=== PATIENT | male | born 1965 | race Caucasian/White ===

== ENCOUNTER 2017-04-19 18:12 | Inpatient (IN) | payer OTHER ==
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
--- NOTE | ~2017-04-19 | PUL ---
[facility] [address] [place]. [address] NAME: MITCH GREEN : 65 STATUS : DIS IN PAT#: [id number] AGE: 51 ADM/REG DATE : 04/19/17 MR#: [id number] REPORT SERV DATE: 04/27/17 DICTATED BY: ASHLEY MORELOS IV DATE: 04/27/17 REPORT STATUS : Draft TRANSCRIBED BY: VICENTE DATE: 04/27/17 PULMONARY FUNCTION TEST OVERNIGHT OXIMETRY The study was initiated on room air; however, 2 L of supplemental oxygen was added after 5 minutes of significant nocturnal desaturation. The remainder of the study was performed on the 2 L. 5 hours and 49 minutes of data are available for review. The mean oxygen saturation was 94.7%. Lowest scored saturation was 72%. The patient spent 36 minutes with oxygen saturations less than 88%. There were periods of oxygen saturation variation throughout the study that varied by significantly more than 4%. It was during these episodes that the patient had significant nocturnal desaturations. IMPRESSION: Significant nocturnal hypoxemia despite 2 L of supplemental oxygen. There is a pattern consistent with obstructive sleep apnea that would be severe based on a desaturation index of 35 per hour. I would continue 2 L of supplemental oxygen for now and obtain a formal polysomnography. CHAPARRITA/VICENTE Ashley Morelos IV, M.D. / [id number] CC: MD Raymon Casas M.D.
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
--- NOTE | ~2017-04-19 | DS ---
Discharge Summary [facility] [address] [place]. [address] NAME: MITCH GREEN : 65 STATUS : DIS IN PAT#: [id number] AGE: 51 ADM/REG DATE : 04/19/17 MR#: [id number] REPORT SERV DATE: 05/01/17 DICTATED BY: CHRISTI BELL DATE: 04/30/17 REPORT STATUS : Draft TRANSCRIBED BY: MODL DATE: 04/30/17 ADMISSION DATE: 04/19/2017 DISCHARGE DATE: 04/27/2017 DISCHARGE DIAGNOSES: 1. New acute heart failure exacerbation present on arrival with ejection fraction of 16% to 20%. 2. Cardiovascular disease, three-vessel on cath. 3. Left ventricular thrombus. 4. Muscular dystrophy. 5. Obesity. 6. Hypertension. 7. Chronic venous stasis changes. CONSULTATIONS: Dr. Cruz and Dr. Levi. PROCEDURES PERFORMED: Nocturnal O2 required at discharge. Vein mapping of lower extremities. Carotid blood flow, normal for carotids. Cardiac MRI, evidence for LV ventricular apical and anteroseptal infarction. There are some small transmural areas which is chronic. There is preservation through most of the infarct area of 50% or more and of the myocardial thickness suggesting viable tissue. There is an intraventricular apical thrombus, EF of 50%, significant tricuspid regurg. Chest x-ray on discharge, stable cardiomegaly. Echocardiogram, apical echodensity measuring up to 1.2 cm on long axis, EF of 20%. Cardiac cath showed severe 3-vessel disease, occluded LAD [id number] and limited to left collaterals. Left heart catheterization, no left ventriculogram performed due to presence of left ventricular thrombus by echo. DISCHARGE DISPOSITION: Discharged with home health heart failure protocol nocturnal O2. Follow up with Dr. Kohli in 2 to 4 weeks, additionally follow up with Dr. Levi in 4 weeks at which time, need to be reassessed for followup with Dr. Cruz in approximately 6 weeks for possible bypass grafting after optimization of pulmonary function, cardiac function with Home Health will be evaluated. DISCHARGE MEDICATIONS: 1. Oxygen 2 L by nasal cannula during sleep. 2. Aspirin 81 mg one tablet p.o. daily. 3. Lipitor 40 mg one tablet p.o. daily. 4. Coreg 6.25 mg one tablet p.o. b.i.d. 5. Demadex 20 mg one tablet p.o. daily. 6. Toujeo 40 units subcutaneous at bedtime. 7. Xarelto 15 mg one tablet p.o. b.i.d. 8. Losartan 50 mg one tablet p.o. daily. 9. Glucophage 1000 mg one tablet p.o. b.i.d. 10.Spironolactone 50 mg one tablet p.o. daily. 11.Oxycodone 5/325 mg one tablet p.o. q.8 hours as needed for breakthrough pain. Discharge Summary [place] [place]. [address] NAME: MITCH GREEN : 65 STATUS : DIS IN PAT#: [id number] AGE: 51 ADM/REG DATE : 04/19/17 MR#: [id number] REPORT SERV DATE: 05/01/17 DICTATED BY: CHRISTI BELL DATE: 04/30/17 REPORT STATUS : Draft TRANSCRIBED BY: VICENTE DATE: 04/30/17 HOSPITAL COURSE: Please see H and P for complete details of HPI. Briefly, Mr. Green is a 51-year-old male insulin-dependent diabetes with history DVT and PE, no longer on anticoagulation, previously used Xarelto, also has muscular dystrophy, who presents after having continued swelling. The patient was having workup for swelling as an outpatient with a head CT performed and possible LV thrombus was noted. The patient was admitted, although he did not feel he is different from his baseline. The patient had coronary workup continued which noted multivessel disease. Vein mapping, carotid workup was also performed with echocardiogram. The patient was noted to have thrombus and before coronary artery bypass grafting could be performed, the patient would need four to six weeks of anticoagulation. This was chosen in the form of Xarelto at which time, the patient will follow with Dr. Levi for reassessment and possible scheduling of bypass grafting at that time. The patient was also advised to have PT/OT Services like in the form of [facility] or the home health or heart failure order set as the patient is with new heart failure in order to optimize lung function prior to potential surgical intervention. The patient was counseled about findings throughout course and discharge recommendations and medications. Greater than 30 minutes was spent with discharge planning, med reconciliation, and education. DICTATED BY: MD ROMINA Casas/VICENTE Christi Bell MD / [id number] CC: MD Raymon Casas M.D.
--- NOTE | ~2017-04-19 | PUL ---
[facility] [address] [place]. [address] NAME: MITCH GREEN : 65 STATUS : ADM IN [facility]#: [id number] AGE: 51 ADM/REG DATE : 04/19/17 MR#: [id number] REPORT SERV DATE: 04/23/17 DICTATED BY: ASHLEY MORELOS IV DATE: 04/22/17 REPORT STATUS : Draft TRANSCRIBED BY: VICENTE DATE: 04/22/17 PULMONARY FUNCTION TEST OVERNIGHT OXIMETRY Study was performed on room air. Seven hours of data available for review. The mean oxygen saturation was 91.4%. The lowest scored saturation was 72%. The patient spent 55 minutes with oxygen saturations of less than 88%. There were periods of oxygen saturation variation throughout the study that varied by more than 4%. IMPRESSION: Significant nocturnal hypoxemia. Majority of this is secondary to respiratory events. The patient had a desaturation index of 48 per hour consistent with severe obstructive sleep apnea. I would suggest placing the patient on 2 L of supplemental oxygen pending a formal polysomnography. CHAPARRITA/VICENTE Ashley Morelos IV, M.D. / [id number] CC: Kailyn Soto M.D.
--- NOTE | ~2017-04-19 | CN ---
Consultation Report [facility] [address] [place]. [address] NAME: VAUGHN GREEN : 65 STATUS : ADM IN [facility]#: [id number] AGE: 51 ADM/REG DATE : 04/19/17 MR#: [id number] REPORT SERV DATE: 04/22/17 DICTATED BY: MING LEVI DATE: 04/22/17 REPORT STATUS : Draft TRANSCRIBED BY: MODL DATE: 04/22/17 CONSULTATION DATE OF CONSULTATION: REASON FOR CONSULTATION: Mr. Vaughn Green is a 51-year-old male, who is referred for new onset congestive heart failure. HISTORY OF PRESENT ILLNESS: Mr. Green was admitted to the hospital with anasarca and has been responding well to diuresis. He had an echocardiogram done which shows severely impaired left ventricular function at 20%, this apparently is new. REVIEW OF SYSTEMS: Negative for chest pain, chest discomfort, previous edema, previous cardiac workup. No significant PND, palpitations, syncope, or presyncope in the last year. PAST MEDICAL HISTORY: 1. Long history of recurrent DVTs, on anticoagulation, which was discontinued apparently on his own recently. 2. 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 3. Muscular dystrophy, longstanding. 4. Insulin-dependent diabetes. 5. Hypertension, longstanding. 6. Current history of smoking 1-1/2 pack per day. SOCIAL HISTORY: He continues smoke on a regular basis. He is fairly inactive. FAMILY HISTORY: Significant for father with coronary artery disease. PHYSICAL EXAMINATION: VITAL SIGNS: Blood pressure is 94/68, pulse is 95, he is afebrile. GENERAL: Resting comfortably at this time. He is overall obese. He is somewhat hard of hearing. EYES: PERRLA. LUNGS: Crackles noted in both bases. COR: PMI is not displaced. No thrills or heaves. NL S1 and S2. No S3, murmur, click or rub. PULSES: Carotids without bruits. ABD: +BS, nontender. EXTREMITIES: Chronic lymphedema is noted with bilateral pitting edema. SKIN: No petechiae. NEURO: Alert and oriented. Does not appear anxious or depressed. LABORATORY EVALUATION: Consultation Report [facility] [id number] [place]. [address] NAME: VAUGHN GREEN : 65 STATUS : ADM IN PAT#: [id number] AGE: 51 ADM/REG DATE : 04/19/17 MR#: [id number] REPORT SERV DATE: 04/22/17 DICTATED BY: MING LEVI DATE: 04/22/17 REPORT STATUS : Draft TRANSCRIBED BY: VICENTE DATE: 04/22/17 1. Echocardiogram, 04/20/2017, showed an EF of 20% with global hypokinesis with suggestion of apical thrombus. 2. Telemetry shows sinus rhythm. 3. EKG shows a normal QRS interval with sinus rhythm. ASSESSMENT: 1. Congestive heart failure. At this time, diuresing well. We will continue. 2. For diagnostic workup of new onset heart failure in a patient with moderate cardiac risk factors, we will obtain a cardiac catheterization for diagnostic purposes only. 3. Anticoagulation. He will need chronic anticoagulation for left ventricle thrombus and history deep venous thrombosis. 4. At this time, we will decrease the lisinopril and try to increase carvedilol as tolerated since both are minimal doses. KRUPA/VICENTE Ming Levi M.D. / [id number] CC: Kailyn Soto M.D.
[2017-04-19] MEDS ORDERED: COZ50 PO (19:26)
[2017-04-19] MEDS ORDERED: SPIRO50 PO (19:27)
[2017-04-19] MEDS ORDERED: TOUJEO SC (19:27)
[2017-04-19] MEDS ORDERED: GLUCOPHAGE1000 MG PO (19:27)
[2017-04-19] MEDS ORDERED: DEMA20 PO (19:27)
[2017-04-19 21:10] LABS: BASOPHILS 0.8 %; BASOPHILS ABSOLUTE 0.08 10/3/uL (0.0-0.16); EOSINOPHILS 1.5 %; EOSINOPHILS ABSOLUTE 0.16 10/3/uL (0.0-0.53); HEMOGLOBIN 15.1 g/dL (13.6-17.8); IMMATURE GRANULOCYTES 0.6 %; IMMATURE GRANULOCYTES ABSOLUTE 0.06 10/3/uL (0.0-0.11); LYMPHOCYTES 20.8 %; LYMPHOCYTES ABSOLUTE 2.19 10/3/uL (0.67-4.30); MEAN CORPUS HGB CONC 33.4 g/dL (32.0-36.0); MEAN CORPUSCULAR HEMOGLOB 28.3 pg (26.0-34.0); MEAN CORPUSCULAR VOLUME 84.6 fL (80-100); MEAN PLATELET VOLUME 9.5 fL (9.2-13.0); MONOCYTES 6.1 %; MONOCYTES ABSOLUTE 0.64 10/3/uL (0.21-1.20); NEUTROPHILS 70.2 %; NEUTROPHILS ABSOLUTE 7.41 10/3/uL (2.02-8.40); PLATELET COUNT 244 10/3/uL (150-400); RBC DISTRIBUTION WIDTH 16.8 % (12.0-16.0); RED CELL COUNT 5.34 10/6/uL (4.7-6.1); WHITE BLOOD CELLS 10.5 10/3/uL (4.5-10.5)
[2017-04-19 21:11] LABS: HEMATOCRIT 45.2 % (40.0-51.0); MANUAL DIFF NO %
[2017-04-19 21:35] LABS: A/G RATIO 0.6 (0.7-1.9); ALBUMIN 2.9 G/DL (3.5-5.0); CALCIUM, SERUM 9.1 MG/DL (8.5-10.4); CHLORIDE, SERUM 100 MMOL/L (96-112); CO2 (CARBON DIOXIDE) 27 MMOL/L (24-34); FREE T4 1.05 NG/DL (0.76-1.46); GFR AFRICAN AMERICAN 101 ML/MIN (>=60); GFR NON AFRICAN AMERICAN 87 ML/MIN (>=60); GLOBULIN 4.7 G/DL (2.5-4.1); POTASSIUM, SERUM 4.2 MMOL/L (3.5-5.3); SGPT(ALT) 15 U/L (5-65); SODIUM, SERUM 137 MMOL/L (135-148); TOTAL PROTEIN 7.6 G/DL (6.0-8.5); TROPONIN I 0.03 NG/ML (<0.05)
[2017-04-19 21:37] LABS: ALKALINE PHOSPHATASE 152 U/L (45-117); BUN (BLOOD UREA NITROGEN) 16 MG/DL (6-23); GLUCOSE, SERUM 296 MG/DL (60-99); SGOT(AST) 24 U/L (5-40)
[2017-04-19 22:00] LABS: B NATRIURETIC PEPTIDE (BNP) 699.4 PG/ML (< 100.0)
[2017-04-19 22:01] LABS: GLYCOHEMOGLOBIN (HbA1c) 11.6 % (4.7-6.1)
[2017-04-20 00:25] LABS: ASCORBIC ACID (UR NOT ORDER) NEG (NEG); BILIRUBIN, URINE NEGATIVE (NEG); KETONE, URINE NEGATIVE (NEG); LEUKOCYTE ESTERASE(NOT OR NEG (NEG); WBC (NOT ORDERED) (RFLEX) 4 (0-5)
[2017-04-20 01:54] LABS: CREATININE RANDOM UR 70.4 MG/DL; CREATININE, URINE 70.4 MG/DL; UR PROTEIN/CREAT RATIO 1.15 (< 0.2)
[2017-04-20 06:12] LABS: BASOPHILS 0.9 %; EOSINOPHILS 2.4 %; EOSINOPHILS ABSOLUTE 0.27 10/3/uL (0.0-0.53); HEMOGLOBIN 14.5 g/dL (13.6-17.8); IMMATURE GRANULOCYTES 0.4 %; IMMATURE GRANULOCYTES ABSOLUTE 0.05 10/3/uL (0.0-0.11); LYMPHOCYTES 28.1 %; LYMPHOCYTES ABSOLUTE 3.17 10/3/uL (0.67-4.30); MEAN CORPUS HGB CONC 33.7 g/dL (32.0-36.0); MEAN CORPUSCULAR HEMOGLOB 28.3 pg (26.0-34.0); MEAN PLATELET VOLUME 9.5 fL (9.2-13.0); MONOCYTES 8.3 %; MONOCYTES ABSOLUTE 0.94 10/3/uL (0.21-1.20); NEUTROPHILS 59.9 %; NEUTROPHILS ABSOLUTE 6.75 10/3/uL (2.02-8.40); PLATELET COUNT 245 10/3/uL (150-400); RBC DISTRIBUTION WIDTH 16.9 % (12.0-16.0); RED CELL COUNT 5.12 10/6/uL (4.7-6.1); WHITE BLOOD CELLS 11.3 10/3/uL (4.5-10.5)
[2017-04-20 06:13] LABS: MANUAL DIFF NO %
[2017-04-20 06:24] LABS: BUN (BLOOD UREA NITROGEN) 14 MG/DL (6-23); CALCIUM, SERUM 9.2 MG/DL (8.5-10.4); CHLORIDE, SERUM 103 MMOL/L (96-112); CO2 (CARBON DIOXIDE) 27 MMOL/L (24-34); CREATININE 0.86 MG/DL (0.70-1.30); GFR AFRICAN AMERICAN 116 ML/MIN (>=60); GFR NON AFRICAN AMERICAN 100 ML/MIN (>=60); GLUCOSE, SERUM 133 MG/DL (60-99); POTASSIUM, SERUM 3.8 MMOL/L (3.5-5.3); SODIUM, SERUM 138 MMOL/L (135-148)
[2017-04-20 14:05] LABS: INTERNATIONAL NORMAL RATI 1.2 UNITS (-)
[2017-04-20 14:06] LABS: PARTIAL THROMBO TIME 84.7 SEC (22.5-37.2)
[2017-04-20 14:11] LABS: PROTIME (NOT ORD) 15.3 SEC (12.0-14.5)
[2017-04-21 02:09] LABS: BASOPHILS 1.1 %; BASOPHILS ABSOLUTE 0.12 10/3/uL (0.0-0.16); EOSINOPHILS 3.2 %; EOSINOPHILS ABSOLUTE 0.34 10/3/uL (0.0-0.53); HEMATOCRIT 43.3 % (40.0-51.0); HEMOGLOBIN 14.6 g/dL (13.6-17.8); IMMATURE GRANULOCYTES 0.5 %; IMMATURE GRANULOCYTES ABSOLUTE 0.05 10/3/uL (0.0-0.11); LYMPHOCYTES 30.5 %; LYMPHOCYTES ABSOLUTE 3.27 10/3/uL (0.67-4.30); MANUAL DIFF NO %; MEAN CORPUS HGB CONC 33.7 g/dL (32.0-36.0); MEAN CORPUSCULAR HEMOGLOB 28.5 pg (26.0-34.0); MEAN CORPUSCULAR VOLUME 84.6 fL (80-100); MEAN PLATELET VOLUME 9.6 fL (9.2-13.0); MONOCYTES 7.5 %; NEUTROPHILS 57.2 %; NEUTROPHILS ABSOLUTE 6.15 10/3/uL (2.02-8.40); PLATELET COUNT 246 10/3/uL (150-400); RBC DISTRIBUTION WIDTH 16.7 % (12.0-16.0); RED CELL COUNT 5.12 10/6/uL (4.7-6.1); WHITE BLOOD CELLS 10.7 10/3/uL (4.5-10.5)
[2017-04-21 11:09] LABS: CALCIUM, SERUM 9.4 MG/DL (8.5-10.4); CHLORIDE, SERUM 99 MMOL/L (96-112); CO2 (CARBON DIOXIDE) 28 MMOL/L (24-34); CREATININE 0.86 MG/DL (0.70-1.30); GFR AFRICAN AMERICAN 116 ML/MIN (>=60); GFR NON AFRICAN AMERICAN 100 ML/MIN (>=60); POTASSIUM, SERUM 4.1 MMOL/L (3.5-5.3); SODIUM, SERUM 134 MMOL/L (135-148)
[2017-04-21 11:10] LABS: BUN (BLOOD UREA NITROGEN) 18 MG/DL (6-23); GLUCOSE, SERUM 176 MG/DL (60-99)
[2017-04-22 04:45] LABS: BASOPHILS 1.2 %; BASOPHILS ABSOLUTE 0.11 10/3/uL (0.0-0.16); EOSINOPHILS 3.3 %; EOSINOPHILS ABSOLUTE 0.31 10/3/uL (0.0-0.53); HEMATOCRIT 45.6 % (40.0-51.0); HEMOGLOBIN 14.9 g/dL (13.6-17.8); IMMATURE GRANULOCYTES 0.6 %; IMMATURE GRANULOCYTES ABSOLUTE 0.06 10/3/uL (0.0-0.11); LYMPHOCYTES 32.8 %; LYMPHOCYTES ABSOLUTE 3.06 10/3/uL (0.67-4.30); MEAN CORPUS HGB CONC 32.7 g/dL (32.0-36.0); MEAN CORPUSCULAR HEMOGLOB 27.8 pg (26.0-34.0); MEAN CORPUSCULAR VOLUME 85.1 fL (80-100); MEAN PLATELET VOLUME 9.7 fL (9.2-13.0); MONOCYTES 7.2 %; MONOCYTES ABSOLUTE 0.67 10/3/uL (0.21-1.20); NEUTROPHILS 54.9 %; NEUTROPHILS ABSOLUTE 5.13 10/3/uL (2.02-8.40); PLATELET COUNT 261 10/3/uL (150-400); RBC DISTRIBUTION WIDTH 16.5 % (12.0-16.0); RED CELL COUNT 5.36 10/6/uL (4.7-6.1); WHITE BLOOD CELLS 9.3 10/3/uL (4.5-10.5)
[2017-04-22 04:46] LABS: MANUAL DIFF NO %
[2017-04-22 04:58] LABS: BUN (BLOOD UREA NITROGEN) 21 MG/DL (6-23); CALCIUM, SERUM 9.7 MG/DL (8.5-10.4); CHLORIDE, SERUM 105 MMOL/L (96-112); CO2 (CARBON DIOXIDE) 26 MMOL/L (24-34); CREATININE 0.81 MG/DL (0.70-1.30); GFR AFRICAN AMERICAN 119 ML/MIN (>=60); GFR NON AFRICAN AMERICAN 103 ML/MIN (>=60); GLUCOSE, SERUM 142 MG/DL (60-99); POTASSIUM, SERUM 4.1 MMOL/L (3.5-5.3); SODIUM, SERUM 130 MMOL/L (135-148)
[2017-04-23 04:30] LABS: BASOPHILS 1.6 %; BASOPHILS ABSOLUTE 0.14 10/3/uL (0.0-0.16); EOSINOPHILS 3.2 %; EOSINOPHILS ABSOLUTE 0.28 10/3/uL (0.0-0.53); HEMATOCRIT 41.4 % (40.0-51.0); HEMOGLOBIN 13.8 g/dL (13.6-17.8); IMMATURE GRANULOCYTES 0.5 %; IMMATURE GRANULOCYTES ABSOLUTE 0.04 10/3/uL (0.0-0.11); LYMPHOCYTES 28.9 %; LYMPHOCYTES ABSOLUTE 2.55 10/3/uL (0.67-4.30); MEAN CORPUS HGB CONC 33.3 g/dL (32.0-36.0); MEAN CORPUSCULAR HEMOGLOB 28.3 pg (26.0-34.0); MEAN CORPUSCULAR VOLUME 84.8 fL (80-100); MONOCYTES 9.4 %; MONOCYTES ABSOLUTE 0.83 10/3/uL (0.21-1.20); NEUTROPHILS 56.4 %; NEUTROPHILS ABSOLUTE 4.98 10/3/uL (2.02-8.40); PLATELET COUNT 259 10/3/uL (150-400); RBC DISTRIBUTION WIDTH 16.6 % (12.0-16.0); RED CELL COUNT 4.88 10/6/uL (4.7-6.1); WHITE BLOOD CELLS 8.8 10/3/uL (4.5-10.5)
[2017-04-23 04:31] LABS: MANUAL DIFF NO %
[2017-04-23 04:36] LABS: INTERNATIONAL NORMAL RATI 1.2 UNITS (-)
[2017-04-23 04:42] LABS: BUN (BLOOD UREA NITROGEN) 22 MG/DL (6-23); CALCIUM, SERUM 9.1 MG/DL (8.5-10.4); CHLORIDE, SERUM 101 MMOL/L (96-112); CHOL/HDL RATIO(NOT ORDER) 3.3 (0-5); CO2 (CARBON DIOXIDE) 29 MMOL/L (24-34); CREATININE 0.88 MG/DL (0.70-1.30); GFR AFRICAN AMERICAN 115 ML/MIN (>=60); GFR NON AFRICAN AMERICAN 99 ML/MIN (>=60); HDL CHOLESTEROL 43 MG/DL (> 39); LDL CHOLESTEROL 85 MG/DL (< 130); NON-HDL CHOLESTEROL 100 MG/DL (< 160); TRIGLYCERIDE 76 MG/DL (< 150)
[2017-04-23 04:45] LABS: CHOLESTEROL 143 MG/DL (< 200); GLUCOSE, SERUM 94 MG/DL (60-99); SODIUM, SERUM 138 MMOL/L (135-148)
[2017-04-24 03:21] LABS: EOSINOPHILS 2.8 %; EOSINOPHILS ABSOLUTE 0.27 10/3/uL (0.0-0.53); HEMOGLOBIN 14.8 g/dL (13.6-17.8); IMMATURE GRANULOCYTES 0.5 %; IMMATURE GRANULOCYTES ABSOLUTE 0.05 10/3/uL (0.0-0.11); LYMPHOCYTES 25.4 %; LYMPHOCYTES ABSOLUTE 2.48 10/3/uL (0.67-4.30); MANUAL DIFF NO %; MEAN CORPUS HGB CONC 32.2 g/dL (32.0-36.0); MEAN CORPUSCULAR VOLUME 87.1 fL (80-100); MEAN PLATELET VOLUME 9.5 fL (9.2-13.0); MONOCYTES 9.1 %; MONOCYTES ABSOLUTE 0.89 10/3/uL (0.21-1.20); NEUTROPHILS 61.2 %; NEUTROPHILS ABSOLUTE 5.96 10/3/uL (2.02-8.40); PLATELET COUNT 220 10/3/uL (150-400); RBC DISTRIBUTION WIDTH 16.6 % (12.0-16.0); RED CELL COUNT 5.28 10/6/uL (4.7-6.1); WHITE BLOOD CELLS 9.8 10/3/uL (4.5-10.5)
[2017-04-24 03:38] LABS: BUN (BLOOD UREA NITROGEN) 22 MG/DL (6-23); CALCIUM, SERUM 8.9 MG/DL (8.5-10.4); CHLORIDE, SERUM 104 MMOL/L (96-112); CO2 (CARBON DIOXIDE) 23 MMOL/L (24-34); CREATININE 0.84 MG/DL (0.70-1.30); GFR AFRICAN AMERICAN 117 ML/MIN (>=60); GFR NON AFRICAN AMERICAN 101 ML/MIN (>=60); GLUCOSE, SERUM 157 MG/DL (60-99); POTASSIUM, SERUM 4.8 MMOL/L (3.5-5.3); SODIUM, SERUM 135 MMOL/L (135-148)
[2017-04-26 03:01] LABS: BASOPHILS 0.7 %; BASOPHILS ABSOLUTE 0.07 10/3/uL (0.0-0.16); EOSINOPHILS 2.2 %; EOSINOPHILS ABSOLUTE 0.23 10/3/uL (0.0-0.53); HEMATOCRIT 44.8 % (40.0-51.0); HEMOGLOBIN 14.4 g/dL (13.6-17.8); IMMATURE GRANULOCYTES 0.6 %; IMMATURE GRANULOCYTES ABSOLUTE 0.06 10/3/uL (0.0-0.11); LYMPHOCYTES 27.4 %; LYMPHOCYTES ABSOLUTE 2.83 10/3/uL (0.67-4.30); MEAN CORPUS HGB CONC 32.1 g/dL (32.0-36.0); MONOCYTES 7.8 %; MONOCYTES ABSOLUTE 0.81 10/3/uL (0.21-1.20); NEUTROPHILS 61.3 %; NEUTROPHILS ABSOLUTE 6.34 10/3/uL (2.02-8.40); PLATELET COUNT 212 10/3/uL (150-400); RBC DISTRIBUTION WIDTH 16.4 % (12.0-16.0); RED CELL COUNT 5.15 10/6/uL (4.7-6.1); WHITE BLOOD CELLS 10.3 10/3/uL (4.5-10.5)
[2017-04-26 03:03] LABS: MANUAL DIFF NO %
[2017-04-26 03:13] LABS: BUN (BLOOD UREA NITROGEN) 23 MG/DL (6-23); CALCIUM, SERUM 8.9 MG/DL (8.5-10.4); CHLORIDE, SERUM 105 MMOL/L (96-112); CO2 (CARBON DIOXIDE) 27 MMOL/L (24-34); CREATININE 0.89 MG/DL (0.70-1.30); GFR AFRICAN AMERICAN 115 ML/MIN (>=60); GFR NON AFRICAN AMERICAN 99 ML/MIN (>=60); GLUCOSE, SERUM 165 MG/DL (60-99); POTASSIUM, SERUM 4.8 MMOL/L (3.5-5.3); SODIUM, SERUM 136 MMOL/L (135-148)
[2017-04-27 07:05] LABS: BASOPHILS 0.6 %; BASOPHILS ABSOLUTE 0.06 10/3/uL (0.0-0.16); EOSINOPHILS 1.7 %; EOSINOPHILS ABSOLUTE 0.16 10/3/uL (0.0-0.53); HEMATOCRIT 42.8 % (40.0-51.0); HEMOGLOBIN 13.8 g/dL (13.6-17.8); IMMATURE GRANULOCYTES 0.5 %; IMMATURE GRANULOCYTES ABSOLUTE 0.05 10/3/uL (0.0-0.11); LYMPHOCYTES 23.1 %; LYMPHOCYTES ABSOLUTE 2.16 10/3/uL (0.67-4.30); MEAN CORPUS HGB CONC 32.2 g/dL (32.0-36.0); MEAN CORPUSCULAR HEMOGLOB 27.9 pg (26.0-34.0); MEAN CORPUSCULAR VOLUME 86.6 fL (80-100); MEAN PLATELET VOLUME 10.1 fL (9.2-13.0); MONOCYTES 7.3 %; MONOCYTES ABSOLUTE 0.68 10/3/uL (0.21-1.20); NEUTROPHILS 66.8 %; NEUTROPHILS ABSOLUTE 6.23 10/3/uL (2.02-8.40); PLATELET COUNT 205 10/3/uL (150-400); RBC DISTRIBUTION WIDTH 16.9 % (12.0-16.0); RED CELL COUNT 4.94 10/6/uL (4.7-6.1); WHITE BLOOD CELLS 9.3 10/3/uL (4.5-10.5)
[2017-04-27 07:10] LABS: MANUAL DIFF NO %
[2017-04-27 07:23] LABS: BUN (BLOOD UREA NITROGEN) 23 MG/DL (6-23); CALCIUM, SERUM 9.2 MG/DL (8.5-10.4); CHLORIDE, SERUM 101 MMOL/L (96-112); CO2 (CARBON DIOXIDE) 31 MMOL/L (24-34); CREATININE 0.92 MG/DL (0.70-1.30); GFR AFRICAN AMERICAN 111 ML/MIN (>=60); GFR NON AFRICAN AMERICAN 96 ML/MIN (>=60); GLUCOSE, SERUM 134 MG/DL (60-99); SODIUM, SERUM 140 MMOL/L (135-148)
[2017-04-27] MEDS ORDERED: ASAB PO (15:14)
[2017-04-27] MEDS ORDERED: LIPITOR40 PO (15:15)
[2017-04-27] MEDS ORDERED: COREG6 PO (15:17)
[2017-04-27] MEDS ORDERED: XARELTO15 MG PO (15:23)
[2017-04-27] MEDS ORDERED: OXYCOD PO (15:28)
[2017-07-02] MEDS ORDERED: XARELTO20 MG PO (15:22)
[2017-07-02] MEDS ORDERED: LIPITOR20 PO (15:22)
[2017-07-02] MEDS ORDERED: L20 PO (15:24)
[2017-07-09] MEDS ORDERED: LOP25 PO (13:53)
== END 2017-04-27 16:32 | disposition home or self-care (01) | DRG 287 ==
LOC: 2SO 18:12
PROVIDERS: Hospitalist; Internal Medicine; Nurse Practitioner Family; Student in an Organized Health Care Education/Training Program
PROC: B2111ZZ Fluoroscopy of Multiple Coronary Arteries using Low Osmolar Contrast (ICD-10-PCS; principal; 2017-04-23)
DX: I50.21 Acute systolic (congestive) heart failure (principal); G71.0 Muscular dystrophy; D68.51 Activated protein C resistance; I42.0 Dilated cardiomyopathy; I24.0 Acute coronary thrombosis not resulting in myocardial infarction; T82.868A Thrombosis due to vascular prosthetic devices, implants and grafts, initial encounter; Z68.41 Body mass index [BMI] 40.0-44.9, adult; I82.5Z2 Chronic embolism and thrombosis of unspecified deep veins of left distal lower extremity; I25.10 Atherosclerotic heart disease of native coronary artery without angina pectoris; I87.8 Other specified disorders of veins; I10 Essential (primary) hypertension; E66.01 Morbid (severe) obesity due to excess calories; F17.210 Nicotine dependence, cigarettes, uncomplicated; I36.1 Nonrheumatic tricuspid (valve) insufficiency; E03.9 Hypothyroidism, unspecified; I25.5 Ischemic cardiomyopathy; E11.65 Type 2 diabetes mellitus with hyperglycemia; G47.33 Obstructive sleep apnea (adult) (pediatric); Z88.0 Allergy status to penicillin; Z86.711 Personal history of pulmonary embolism; Z86.718 Personal history of other venous thrombosis and embolism; Z98.890 Other specified postprocedural states; Z82.49 Family history of ischemic heart disease and other diseases of the circulatory system; Z79.01 Long term (current) use of anticoagulants
CPT/HCPCS: 71010; 71020; 71275; 75561; 80048; 80053; 80061; 81001; 82570; 82962; 83036; 83735; 83880; 83935; 84156; 84300; 84439; 84443; 84484; 85025; 85610; 85730; 93005; 93454; 93880; 93970; 94762; 97161-GP; 97164-GP; 97165-GO; 99152; A9270-GY; A9577; C1769; C1894; C8929; G0365; J2250; J3010; Q9957; Q9967